=== PATIENT | male | born 1995 | race Caucasian/White ===

== ENCOUNTER 2019-03-18 03:47 | Emergency (ER) | payer BC ==
[2019-03-18] MEDS ORDERED: LORazepam 2 MG/ML SDV IVPUSH ONE (04:07)
--- NOTE | 2019-03-18 04:11 | EDM.PDOC ---
ED HPI GENERAL MEDICAL PROBLEM - General Chief Complaint: Cardiovascular Problem Stated Complaint: [facility] Time Seen by Provider: 03/18/19 03:51 Source of Information: Reports: Patient History Limitations: Reports: No Limitations - History of Present Illness INITIAL COMMENTS - FREE TEXT/NARRATIVE: This is a 24-year-old male. Apparently he woke up this morning having a racing heart and sweating and he got up and he went to the bathroom he had some nausea and vomiting felt somewhat lightheaded and so he called the ambulance. They bring him to the ER and his heart rate is running about 110 he seems somewhat jittery and anxious. He states that he has stopped drinking during the week he used to drink 4 beers a day but now he doesn't drink any during the week and then he drinks only on the weekend and had 12 drinks yesterday. He denies any illegal drug use. He has no chest pain no shortness of breath he's not had any fever or chills or any sort of congestion or cough. - Related Data Allergies Allergy/AdvReac Type Severity Reaction Status Date / Time No Known Allergies Allergy Verified 03/18/19 03:52 Home Meds: Home Meds . [No Known Home Meds] 03/18/19 [History] Past Medical History - Past Health History Medical/Surgical History: Denies Medical/Surgical History Musculoskeletal History: Reports: Fracture Social & Family History - Tobacco Use Smoking Status *Q: Current Every Day Smoker Years of Tobacco use: 7 Packs/Tins Daily: 2 - Recreational Drug Use Recreational Drug Use: No ED ROS GENERAL - Review of Systems Review Of Systems: See Below Constitutional: Reports: Diaphoresis. Denies: Fever, Chills HEENT: Reports: No Symptoms Respiratory: Denies: Shortness of Breath, Cough Cardiovascular: Reports: Lightheadedness, Other (Palpitations). Denies: Chest Pain Endocrine: Reports: No Symptoms GI/Abdominal: Reports: Nausea, Vomiting. Denies: Abdominal Pain, Diarrhea : Reports: No Symptoms Musculoskeletal: Reports: No Symptoms Skin: Reports: No Symptoms Neurological: Reports: No Symptoms Psychiatric: Reports: No Symptoms Hematologic/Lymphatic: Reports: No Symptoms ED EXAM, GENERAL - Physical Exam Exam: See Below Exam Limited By: No Limitations General Appearance: Alert, WD/WN, Anxious Eye Exam: Bilateral Eye: Normal Inspection Ears: Normal External Exam Nose: Normal Inspection Throat/Mouth: Normal Inspection, Normal Lips, Normal Voice, No Airway Compromise Head: Normocephalic Neck: Supple Respiratory/Chest: No Respiratory Distress, Lungs Clear, Normal Breath Sounds Cardiovascular: Regular Rate, Rhythm, No Murmur, Tachycardia GI/Abdominal: Soft, Non-Tender Back Exam: Normal Inspection, Full Range of Motion Extremities: Normal Inspection, Normal Range of Motion Neurological: Alert, Oriented Psychiatric: Anxious Skin Exam: Warm, Dry EKG INTERPRETATION EKG Date: 03/18/19 Time: 04:26 EKG Interpretation Comments: EKG showed sinus tachycardia rate of 114, there is no acute ST or T-wave changes noted and there is no ischemia noted. He does have poor R-wave progression in anterior leads noted but no history of any heart problems. Course - Vital Signs Last Recorded V/S: Last Vital Signs Temp 98.5 F 03/18/19 03:52 Pulse 115 H 03/18/19 03:52 Resp 15 03/18/19 03:52 BP 154/80 H 03/18/19 03:52 Pulse Ox 100 03/18/19 03:52 - Orders/Labs/Meds Orders: Active Orders 24 hr Category Date Time Status EKG 12 Lead [EKG Documentation Completion] [RC] STAT Care 03/18/19 04:07 Active Labs: Laboratory Tests 03/18/19 03/18/19 Range/Units 03:57 03:57 WBC 8.05 (4.23-9.07) K/mm3 RBC 4.92 (4.63-6.08) M/mm3 Hgb 15.9 (13.7-17.5) gm/L Hct 46.3 (40.1-51.0) % MCV 94.1 H (79.0-92.2) fl MCH 32.3 H (25.7-32.2) pg MCHC 34.3 (32.2-35.5) g/dl RDW Std Deviation 42.3 (35.1-43.9) fL Plt Count 415 H (163-337) K/mm3 MPV 8.7 L (9.4-12.3) fl Neut % (Auto) 48.6 (34.0-67.9) % Lymph % (Auto) 33.8 (21.8-53.1) % Bowman % (Auto) 14.3 H (5.3-12.2) % Eos % (Auto) 2.7 (0.8-7.0) Baso % (Auto) 0.4 (0.1-1.2) % Neut # (Auto) 3.91 (1.78-5.38) K/mm3 Lymph # (Auto) 2.72 (1.32-3.57) K/mm3 Bowman # (Auto) 1.15 H (0.30-0.82) K/mm3 Eos # (Auto) 0.22 (0.04-0.54) K/mm3 Baso # (Auto) 0.03 (0.01-0.08) K/mm3 Manual Slide Review Normal smear Sodium 137 (136-145) mEq/L Potassium 3.3 L (3.5-5.1) mEq/L Chloride 99 (98-107) mEq/L Carbon Dioxide 23 (21-32) mEq/L Anion Gap 18.3 H (5-15) BUN 11 (7-18) mg/dL Creatinine 1.0 (0.7-1.3) mg/dL Est Cr Clr Drug Dosing 105.05 mL/min Estimated GFR (MDRD) > 60 (>60) mL/min BUN/Creatinine Ratio 11.0 L (14-18) Glucose 101 (74-106) mg/dL Calcium 9.8 (8.5-10.1) mg/dL Total Bilirubin 0.4 (0.2-1.0) mg/dL AST 24 (15-37) U/L ALT 31 (16-63) U/L Alkaline Phosphatase 90 (46-116) U/L Troponin I < 0.017 (0.00-0.056) ng/mL Total Protein 8.1 (6.4-8.2) g/dl Albumin 4.7 (3.4-5.0) g/dl Globulin 3.4 gm/dL Albumin/Globulin Ratio 1.4 (1-2) Meds: Medications Discontinued Medications Generic Name Dose Route Start Last Admin Trade Name Freq PRN Reason Stop Dose Admin Lorazepam 0.5 mg 03/18/19 04:07 03/18/19 04:15 Ativan IVPUSH 03/18/19 04:08 0.5 mg ONETIME ONE Administration - Re-Assessments/Exams Free Text/Narrative Re-Assessment/Exam: 03/18/19 05:18 Spoke to the patient regarding his EKG results as well as his lab results. He does have a minimally low potassium bilateral bleeding vessels causing the problem. I encouraged him that since he is not drinking on the weekdays don't binge drink on the weekends goes the body can handle this. He seems to understand. Departure - Departure Time of Disposition: 05:18 Disposition: Home, Self-Care 01 Condition: Good Clinical Impression: Palpitations, Adverse reaction to alcohol products Referrals: PCP,None [Primary Care Provider] - Forms: ED Department Discharge Additional Instructions: I would encourage you that since she don't drink during the week moderate for no drinking over the weekend, if you overdrink on the weekends body is not used to it it will have an adverse reaction, follow-up with your family doctor if needed, return to the ER if needed - My Orders Last 24 Hours: My Active Orders 03/18/19 04:07 EKG 12 Lead [EKG Documentation Completion] [RC] STAT - Assessment/Plan Last 24 Hours: My Active Orders 03/18/19 04:07 EKG 12 Lead [EKG Documentation Completion] [RC] STAT
== END 2019-03-18 05:22 | disposition home or self-care (01) ==
LOC: JD.ED 03:47
DX: R00.2 Palpitations (principal); T50.995A Adverse effect of other drugs, medicaments and biological substances, initial encounter; F17.210 Nicotine dependence, cigarettes, uncomplicated
CPT/HCPCS: 36415; 80053; 84484; 85025; 93005; 96374; 99285; J2060; 93010; 99283

== ENCOUNTER 2020-01-24 22:18 | Emergency (ER) | payer BC ==
[2020-01-24] MEDS ORDERED: FLU Vacc QS2019-20(6MOS+)/PF 60 MCG/0.5 ML SYRINGE IM ONE (23:00)
--- NOTE | 2020-01-25 00:05 | EDM.PDOCBH ---
ED HPI GENERAL MEDICAL PROBLEM - General Chief Complaint: Behavioral/Psych Stated Complaint: MENTAL HEALTH Time Seen by Provider: 01/25/20 00:01 - History of Present Illness INITIAL COMMENTS - FREE TEXT/NARRATIVE: 24-year-old male presents the emergency room with some suicidal thoughts. 3 days ago the patient was changed to Zoloft 50 mg a day he does not remember what he was taking prior to this since that time he has been much more emotional having downs at work. Today had to leave work early. He usually drinks a 12 pack of beer nightly today he had 7 after leaving work early. At this time the patient given the opportunity to hurt himself says he will not however in the same sentence says he does not see a reason to live. Patient is still under the influence of alcohol. He denies any illicit drug use. No suicidal attempts in the past - Related Data Allergies Allergy/AdvReac Type Severity Reaction Status Date / Time No Known Allergies Allergy Verified 01/24/20 22:41 Home Meds: Home Meds Amoxicillin/Potassium Clav [Amox-Clav 875-125 mg Tablet] 875 mg PO DAILY [History] Sertraline [Zoloft] 50 mg PO DAILY 01/24/20 [History] Past Medical History - Past Health History Medical/Surgical History: Denies Medical/Surgical History Musculoskeletal History: Reports: Fracture Psychiatric History: Reports: Addiction, Anxiety, Depression Social & Family History - Caffeine Use Caffeine Use: Reports: None - Alcohol Use Days Per Week of Alcohol Use: 7 Number of Drinks Per Day: 14 Total Drinks Per Week: 98 - Recreational Drug Use Recreational Drug Use: No ED ROS GENERAL - Review of Systems Review Of Systems: See Below Constitutional: Reports: No Symptoms HEENT: Reports: No Symptoms Respiratory: Reports: No Symptoms Cardiovascular: Reports: No Symptoms Endocrine: Reports: No Symptoms GI/Abdominal: Reports: No Symptoms : Reports: No Symptoms Musculoskeletal: Reports: No Symptoms Skin: Reports: No Symptoms Neurological: Reports: No Symptoms Psychiatric: Reports: Depression, Suicidal Ideation. Denies: Hallucinations, Homicidal Ideation ED EXAM, BEHAVIORAL HEALTH - Physical Exam Exam: See Below Exam Limited By: No Limitations General Appearance: Alert, No Apparent Distress Eye Exam: Bilateral Eye: Normal Inspection Ears: Normal External Exam, Normal Canal, Hearing Grossly Normal, Normal TMs Nose: Normal Inspection, Normal Mucosa, No Blood Throat/Mouth: Normal Inspection, Normal Lips, Normal Teeth, Normal Gums, Normal Oropharynx, Normal Voice, No Airway Compromise Head: Atraumatic, Normocephalic Neck: Normal Inspection, Supple, Non-Tender, Full Range of Motion. No: Lymphadenopathy (L), Lymphadenopathy (R) Respiratory/Chest: No Respiratory Distress, Lungs Clear, Normal Breath Sounds, No Accessory Muscle Use, Chest Non-Tender Cardiovascular: Normal Peripheral Pulses, Regular Rate, Rhythm, No Edema, No Gallop, No JVD, No Murmur, No Rub GI/Abdominal: Normal Bowel Sounds, Soft, Non-Tender, No Organomegaly, No Distention, No Abnormal Bruit, No Mass Back Exam: Normal Inspection. No: CVA Tenderness (L), CVA Tenderness (R) Extremities: Normal Inspection, No Pedal Edema Neurological: Alert, Normal Mood/Affect, Normal Cognition Psychiatric: Depressed Mood, Flat Affect, Suicidal Thoughts. No: Homicidal Thoughts, Suicidal Plan Skin Exam: Warm, Dry, Intact COURSE, BEHAVIORAL HEALTH COMP - Course Vital Signs: Last Vital Signs Temp 37.0 C 01/24/20 22:42 Pulse 86 01/24/20 22:42 Resp 16 01/24/20 22:42 BP 133/89 01/24/20 22:42 Pulse Ox 97 01/24/20 22:42 Orders, Labs, Meds: Active Orders 24 hr Category Date Time Status Influenza Vaccine Charge [RC] .DISCHARGE Care 01/24/20 22:53 Active Lactated Ringers [Ringers, Lactated] 1,000 ml Med 01/25/20 00:15 Active IV ASDIRECTED Medication Orders Lactated Ringer's (Ringers, Lactated) 1,000 mls @ 125 mls/hr IV ASDIRECTED BG Last Admin: 01/25/20 02:06 Dose: 125 mls/hr Laboratory Tests 01/24/20 01/24/20 01/24/20 Range/Units 23:23 23:23 23:23 WBC 5.91 (4.23-9.07) K/mm3 RBC 5.01 (4.63-6.08) M/mm3 Hgb 16.3 (13.7-17.5) gm/dl Hct 48.9 (40.1-51.0) % MCV 97.6 H D (79.0-92.2) fl MCH 32.5 H (25.7-32.2) pg MCHC 33.3 (32.2-35.5) g/dl RDW Std Deviation 45.1 H (35.1-43.9) fL Plt Count 311 D (163-337) K/mm3 MPV 8.3 L (9.4-12.3) fl Neut % (Auto) 59.8 (34.0-67.9) % Lymph % (Auto) 26.6 (21.8-53.1) % Collier % (Auto) 11.5 (5.3-12.2) % Eos % (Auto) 1.2 (0.8-7.0) Baso % (Auto) 0.7 (0.1-1.2) % Neut # (Auto) 3.54 (1.78-5.38) K/mm3 Lymph # (Auto) 1.57 (1.32-3.57) K/mm3 Collier # (Auto) 0.68 (0.30-0.82) K/mm3 Eos # (Auto) 0.07 (0.04-0.54) K/mm3 Baso # (Auto) 0.04 (0.01-0.08) K/mm3 Sodium 143 (136-145) mEq/L Potassium 4.8 D (3.5-5.1) mEq/L Chloride 104 (98-107) mEq/L Carbon Dioxide 28 (21-32) mEq/L Anion Gap 15.8 H (5-15) BUN 6 L (7-18) mg/dL Creatinine 0.9 (0.7-1.3) mg/dL Est Cr Clr Drug Dosing 123.97 mL/min Estimated GFR (MDRD) > 60 (>60) mL/min BUN/Creatinine Ratio 6.7 L (14-18) Glucose 90 (74-106) mg/dL Calcium 8.7 (8.5-10.1) mg/dL Magnesium 2.2 (1.8-2.4) mg/dl Total Bilirubin 0.3 (0.2-1.0) mg/dL AST 39 H (15-37) U/L ALT 56 (16-63) U/L Alkaline Phosphatase 94 (46-116) U/L Total Protein 8.2 (6.4-8.2) g/dl Albumin 4.5 (3.4-5.0) g/dl Globulin 3.7 gm/dL Albumin/Globulin Ratio 1.2 (1-2) TSH 3rd Generation 1.942 (0.358-3.74) uIU/mL Urine Color (Yellow) Urine Appearance (Clear) Urine pH (5.0-8.0) Ur Specific [place] (1.005-1.030) Urine Protein (Negative) Urine Glucose (UA) (Negative) Urine Ketones (Negative) Urine Occult Blood (Negative) Urine Nitrite (Negative) Urine Bilirubin (Negative) Urine Urobilinogen (0.2-1.0) Ur Leukocyte Esterase (Negative) Urine RBC (0-5) /hpf Urine WBC (0-5) /hpf Ur Squamous Epith Cells (0-5) /hpf Urine Bacteria (FEW) /hpf Urine Mucus (FEW) /hpf Urine Opiates Screen (GHUZKP=096) Ur Buprenorphine Scrn (CUTOFF=10) Ur Oxycodone Screen (IMW8HR=130) Urine Methadone Screen (ZXN8AV=364) Ur Propoxyphene Screen (XPQHFC=614) Ur Barbiturates Screen (TLASJV=511) Ur Tricyclics Screen (HZHGKT=497) Ur Phencyclidine Scrn (CUTOFF=25) Ur Amphetamine Screen (SEUVRD=265) U Methamphetamines Scrn (GQYHKL=305) U Benzodiazepines Scrn (VUICGK=362) U Cocaine Metab Screen (OTEKBK=722) U Marijuana (THC) Screen (CUTOFF=50) Ethyl Alcohol 0.28 (0.00) gm% 01/25/20 01/25/20 01/25/20 Range/Units 00:00 00:00 05:30 WBC (4.23-9.07) K/mm3 RBC (4.63-6.08) M/mm3 Hgb (13.7-17.5) gm/dl Hct (40.1-51.0) % MCV (79.0-92.2) fl MCH (25.7-32.2) pg MCHC (32.2-35.5) g/dl RDW Std Deviation (35.1-43.9) fL Plt Count (163-337) K/mm3 MPV (9.4-12.3) fl Neut % (Auto) (34.0-67.9) % Lymph % (Auto) (21.8-53.1) % Collier % (Auto) (5.3-12.2) % Eos % (Auto) (0.8-7.0) Baso % (Auto) (0.1-1.2) % Neut # (Auto) (1.78-5.38) K/mm3 Lymph # (Auto) (1.32-3.57) K/mm3 Collier # (Auto) (0.30-0.82) K/mm3 Eos # (Auto) (0.04-0.54) K/mm3 Baso # (Auto) (0.01-0.08) K/mm3 Sodium (136-145) mEq/L Potassium (3.5-5.1) mEq/L Chloride (98-107) mEq/L Carbon Dioxide (21-32) mEq/L Anion Gap (5-15) BUN (7-18) mg/dL Creatinine (0.7-1.3) mg/dL Est Cr Clr Drug Dosing mL/min Estimated GFR (MDRD) (>60) mL/min BUN/Creatinine Ratio (14-18) Glucose (74-106) mg/dL Calcium (8.5-10.1) mg/dL Magnesium (1.8-2.4) mg/dl Total Bilirubin (0.2-1.0) mg/dL AST (15-37) U/L ALT (16-63) U/L Alkaline Phosphatase (46-116) U/L Total Protein (6.4-8.2) g/dl Albumin (3.4-5.0) g/dl Globulin gm/dL Albumin/Globulin Ratio (1-2) TSH 3rd Generation (0.358-3.74) uIU/mL Urine Color Yellow (Yellow) Urine Appearance Clear (Clear) Urine pH 6.0 (5.0-8.0) Ur Specific [place] 1.015 (1.005-1.030) Urine Protein Negative (Negative) Urine Glucose (UA) Negative (Negative) Urine Ketones Negative (Negative) Urine Occult Blood Negative (Negative) Urine Nitrite Negative (Negative) Urine Bilirubin Negative (Negative) Urine Urobilinogen 0.2 (0.2-1.0) Ur Leukocyte Esterase Negative (Negative) Urine RBC 0-5 (0-5) /hpf Urine WBC Not seen (0-5) /hpf Ur Squamous Epith Cells 0-5 (0-5) /hpf Urine Bacteria Not seen (FEW) /hpf Urine Mucus Not seen (FEW) /hpf Urine Opiates Screen Negative (OVOSVV=114) Ur Buprenorphine Scrn Negative (CUTOFF=10) Ur Oxycodone Screen Negative (GZU7IF=220) Urine Methadone Screen Negative (ATA8JG=823) Ur Propoxyphene Screen Negative (ETBFRT=232) Ur Barbiturates Screen Negative (LPHCWG=587) Ur Tricyclics Screen Negative (WXXLJN=534) Ur Phencyclidine Scrn Negative (CUTOFF=25) Ur Amphetamine Screen Negative (ZBXAUR=829) U Methamphetamines Scrn Negative (DMXRLM=338) U Benzodiazepines Scrn Negative (HGFOHV=538) U Cocaine Metab Screen Negative (EDOLUI=418) U Marijuana (THC) Screen Negative (CUTOFF=50) Ethyl Alcohol 0.14 (0.00) gm% Medications Generic Name Dose Route Start Last Admin Trade Name Freq PRN Reason Stop Dose Admin Lactated Ringer's 1,000 mls @ 125 mls/hr 01/25/20 00:15 01/25/20 02:06 Ringers, Lactated IV 125 mls/hr ASDIRECTED BG Administration Discontinued Medications Generic Name Dose Route Start Last Admin Trade Name Freq PRN Reason Stop Dose Admin Lactated Ringer's 1,000 mls @ 999 mls/hr 01/25/20 00:06 01/25/20 00:48 Ringers, Lactated IV 01/25/20 01:06 999 mls/hr .BOLUS ONE Administration Influenza Virus Vaccine 1 each 01/24/20 22:53 Pharmacy To Dose - Influenza Vaccine IM 01/24/20 22:54 ONETIME ONE Influenza Virus Vaccine 60 mcg 01/24/20 23:00 01/24/20 23:51 Fluzone Quad [id number] Syringe IM 01/24/20 23:01 60 mcg .ONCE ONE Administration Discharge vs Psych Eval/Treatment:: 01/25/20 06:47 Patient's last blood alcohol was 0.14 at 530. The patient has been awake for the last couple of hours. I had several discussions with him and he is adamantly denying any suicidal thoughts or wishes to hurt himself. He is overwhelmed by the stresses of work at times and he is just been changed over to a new antidepressant. We have discussed about the possibility of him going to seeing the counselor he will consider this option he will be discharged at this point he is arranging to get a ride. Departure - Departure Time of Disposition: 06:52 Disposition: Home, Self-Care 01 Clinical Impression: Depressive disorder, Alcohol abuse - Discharge Information Referrals: Phoebe Burk PA-C [Primary Care Provider] - Forms: ED Department Discharge Additional Instructions: Return to the emergency room with any questions problems or worsening symptoms. Follow-up with your regular physician this next week. Find a counselor and discuss your depression and your alcoholism. Sepsis Event Note - Evaluation Sepsis Screening Result: No Definite Risk - Focused Exam Vital Signs: Vital Signs Temp Pulse Resp BP Pulse Ox 01/24/20 22:42 37.0 C 86 16 133/89 97 Date Exam was Performed: 01/25/20 Time Exam was Performed: 06:47 - My Orders Last 24 Hours: My Active Orders 01/24/20 22:53 Influenza Vaccine Charge [RC] .DISCHARGE 01/25/20 00:15 Lactated Ringers [Ringers, Lactated] 1,000 ml IV ASDIRECTED - Assessment/Plan Last 24 Hours: My Active Orders 01/24/20 22:53 Influenza Vaccine Charge [RC] .DISCHARGE 01/25/20 00:15 Lactated Ringers [Ringers, Lactated] 1,000 ml IV ASDIRECTED
[2020-01-25] MEDS ORDERED: Lactated Ringers 1,000 ML IV ONE (00:06)
[2020-01-25] MEDS ORDERED: Lactated Ringers 1,000 ML IV SCH (00:15)
== END 2020-01-25 07:14 | disposition home or self-care (01) ==
LOC: JD.ED 22:18
DX: F32.9 Major depressive disorder, single episode, unspecified (principal); F10.10 Alcohol abuse, uncomplicated; Z79.899 Other long term (current) drug therapy
CPT/HCPCS: 36415; 80053; 80306; 80307; 81001; 83735; 84443; 85025; 90471; 90686; 96360; 96361; 99284; J7120; 99283; G0008